=== PATIENT | male | born 1985 | race Two or more races ===

== ENCOUNTER 2022-10-18 12:39 | Emergency (ER) | payer OTHER ==
[~2022-10-18] VITALS: Ht 175.3 cm; Wt 114.1 kg
[2022-10-18] MEDS ORDERED: cloNIDine HCL 0.1 MG TAB PO ONE (13:00)
[2022-10-18] MEDS ORDERED: methylPREDNISolone SOD SUCC 125 MG/2 ML VL IM ONE (13:15)
[2022-10-18] MEDS ORDERED: cefTRIAXone SOD 1,000 MG VL IM ONE (13:15)
[2022-10-18] MEDS ORDERED: ACETAMINOPHEN 500 MG TAB PO ONE (13:15)
[2022-10-18] MEDS ORDERED: IBUPROFEN 800 MG TAB PO ONE (14:15)
[2022-10-18 14:48] VITALS: BP 138/77
[2022-10-18] MEDS ORDERED: IBUP800T27 PO (14:48)
[2022-10-18] MEDS ORDERED: AZIT500T66 PO (14:48)
[2022-10-18] MEDS ORDERED: LIDO2SOL23 MT (14:48)
== END 2022-10-18 14:53 | disposition home or self-care (01) ==
LOC: ER 12:39
DX: J03.90 Acute tonsillitis, unspecified (principal); I16.0 Hypertensive urgency; I10 Essential (primary) hypertension
CPT/HCPCS: 87070; 87880; 96372; 99284; J0696; J2930

== ENCOUNTER 2023-04-14 19:36 | Emergency (ER) | payer OTHER ==
[~2023-04-14] VITALS: Ht 175.3 cm; Wt 109.0 kg
[~2023-04-14 19:36] MED LIST: AZIT500T66 PO; IBUP-1456 PO; LIDO2SOL26 MT
[2023-04-14] MEDS ORDERED: HYDROcodone-ACET 5/325MG TAB PO ONE (20:30)
[2023-04-14 20:45] VITALS: BP 175/86; PULSE 106; RESP 20; TEMP 97.3; O2SAT 98
[2023-04-14] MEDS ORDERED: ACE3T PO (21:23)
[2023-04-14] MEDS ORDERED: KETOROLAC TROMETH 60MG/2ML VIAL IM ONE (21:45)
== END 2023-04-14 21:48 | disposition home or self-care (01) ==
LOC: ER 19:36
DX: S93.692A Other sprain of left foot, initial encounter (principal); I10 Essential (primary) hypertension; Z79.1 Long term (current) use of non-steroidal anti-inflammatories (NSAID); Z79.899 Other long term (current) drug therapy; X58.XXXA Exposure to other specified factors, initial encounter; Y93.02 Activity, running; Y92.89 Other specified places as the place of occurrence of the external cause; Y99.8 Other external cause status
CPT/HCPCS: 73630; 96372; 99283; J1885

== ENCOUNTER 2024-03-26 20:39 | Emergency (ER) | payer OTHER, MEDICAID ==
[~2024-03-26] VITALS: Ht 175.3 cm; Wt 105.0 kg
[~2024-03-26 20:39] MED LIST changes: +ACE3T PO
[2024-03-26 22:46] VITALS: BP 152/86; PULSE 93; RESP 20; TEMP 98; O2SAT 96
[2024-03-26] MEDS: HYDROcodone-ACET 10/325MG TAB PO ONE (22:58)
[2024-03-26] MEDS: KETOROLAC TROMETH 60MG/2ML VIAL IM ONE (22:59)
[2024-03-26] MEDS ORDERED: ACET-1304 PO (23:54)
[2024-03-26] MEDS ORDERED: IBUP-1455 PO (23:54)
[2024-03-26] MEDS ORDERED: METH-1181 PO (23:54)
== END 2024-03-27 00:09 | disposition home or self-care (01) ==
LOC: ER 20:39
DX: S29.011A Strain of muscle and tendon of front wall of thorax, initial encounter (principal); S46.812A Strain of other muscles, fascia and tendons at shoulder and upper arm level, left arm, initial encounter; I10 Essential (primary) hypertension; Z79.899 Other long term (current) drug therapy; X58.XXXA Exposure to other specified factors, initial encounter; Y93.89 Activity, other specified; Y92.89 Other specified places as the place of occurrence of the external cause; Y99.8 Other external cause status
CPT/HCPCS: 29105; 71045; 73030; 73060; 96372; 99284; J1885

== ENCOUNTER 2024-06-29 10:13 | Emergency (ER) | payer OTHER, MEDICAID ==
[~2024-06-29] VITALS: Ht 170.2 cm; Wt 105.0 kg
[~2024-06-29 10:13] MED LIST changes: +ACET-1304 PO; +IBUP-1455 PO; +METH-1181 PO
--- NOTE | 2024-06-29 10:33 | ED.PDOC ---
GI ASSESSMENT HPI Comments Vitals T: 99.4F RR: 20 HR: 116 BP: 129/102 R arm O2: 96% on RA PMHx: HTN PSHx: L ankle surgery, L hand surgery, R elbow surgery Social hx: denies tobacco use, denies ETOH use, denies drug use Meds: denies Allergies: NKDA HPI: Poor Historian. 39-year-old male presents to emergency department with his for evaluation of epigastric and bilateral upper quadrant pain that is constant with the associated nausea and vomiting and diarrhea nonbilious nonbloody. Patient onset of symptoms was at 3:00 a.m. in the morning prior to arrival. Patient denies any sick contacts. He did have someEl Joshua Stacy last night for dinner. No alleviating or precipitating factors. REVIEW OF SYSTEMS: CONSTITUTIONAL: Denies acute: fever, diaphoresis, chills, HEAD: Denies acute: headache, photophobia Eyes: Denies acute: Double vision, vision loss, eye pain, eye discharge. EARS: Denies acute: tinnitus, hearing loss, ear discharge, ear pain, THROAT: Denies acute: sore throat, swelling, difficulty swallowing , pain with swallowing, change in voice. NECK: Denies acute: neck pain, neck swelling, stiff neck. HEART: Denies acute : chest pain, palpitations, LUNGS: Denies acute: SOB, wheezing, cough, hemoptysis ABDOMEN: Denies acute: melena , hematemesis, hematochezia SKIN: Denies acute: rash, redness, lesions, itchiness. EXTREMITIES: Denies acute: calf pain, numbness, tingling, weakness, denies pain in extremity. Denies acute: Low back pain. Neuro: Denies acute: focal neurological deficit, motor or sensory focal neurological deficit, tremors, seizure like activity, confusion, dizziness, change in mental status, loss of bowel or bladder function, cauda equina like symptoms. : Denies acute: dysuria, hematuria, flank pain, increase in urinary frequency. PSYCH: Denies acute: hallucination, suicidal ideation, homicidal ideation. PHYSICAL EXAM: General: Moderate acute distress, awake and alert. Head: normocephalic, atraumatic. Neck: supple, trachea is midline, no swelling. Throat: Normal phonation. Eyes:, no erythema, no purulent discharge, no proptosis, no icterus. Heart: regular tachycardic, no significant murmur appreciated. Lungs: no apparent respiratory distress, Able to speak in full sentences. No wheezing, no rhonchi, no crackles. No stridors Clear to auscultation bilaterally. Abdomen: Epigastric and upper quadrant tender to palpation, non distended, soft, no guarding, no rebound, + bowel sounds. Neuro: Awake, Alert, oriented to name, self, situation, follows commands GCS=15. Speech is normal. Skin: no petechia, no purpura, no cyanosis, non-pale, not jaundice. Lower extremities: --no - Pitting edema no deformity, no focal swelling, no calf TTP. Makes eye contact. moves all four extremities. Face: no apparent facial droop. Ambulating in the ED independently. Chief Complaint: Abdominal Pain Time Seen by MD: 10:39 Primary Care Provider: NONE Reviewed Notes: Medications, Allergies Allergies: Coded Allergies: NO KNOWN ALLERGIES (Unverified , 10/18/22) Home Meds Active Scripts Methocarbamol (Methocarbamol) 500 Mg Tab, 1000 MG PO Q8HP PRN, #30 TAB P.r.n. muscle pain/spasm Prov:ÁLVARO HAYNES MD 03/26/24 Ibuprofen Micronized (Ibuprofen) 800 Mg Tab, 800 MG PO Q6HP PRN, #30 TAB Prov:ÁLVARO HAYNES MD 03/26/24 Acetaminophen (Tylenol Extra Strength) 500 Mg Tab, 1000 MG PO Q6HP PRN, #30 TAB Prov:ÁLVARO HAYNES MD 03/26/24 Acetaminophen W/ Codeine (Tylenol W/Cod #3) 1 Tab Tb, 1 TAB PO QIDP, #10 TAB 0 Refills Prov:ADAN TOLEDO 04/14/23 Lidocaine HCl (Mouth-Throat) (Lidocaine HCl Viscous) 2 % Charo, 10 ML MT TID, #120 ML Prov:ALEC AGEE 10/18/22 Ibuprofen (Ibuprofen) 800 Mg Tab, 1 TAB PO QID, #30 TAB Prov:ALEC AGEE 10/18/22 Azithromycin (Azithromycin) 500 Mg Tab, 1 TAB PO DAILY, #5 TAB Prov:ALEC AGEE 10/18/22 Information Source: Patient Mode of Arrival: Ambulatory Brought in by: self Past Medical History PAST MEDICAL HISTORY: HTN Surgical History: Denies all surgeries Family History Family History: Reviewed,noncontributory to illness Social History Smoker: Non-Smoker Alcohol: Denies ETOH Use Drugs: Denies Drug Use Lives In: Home Was a procedure done? Was a procedure done?: No GI differential Dx Differential Diagnosis: Other (DDX include but not limited to diverticulitis, colitis, gastroenteritis, acute abdomen, SBO, enteritis, constipation, volvulus, appendicitis, Gallbladder disease, choledocolithiasis, ascending cholangitis, pancreatitis, intraAbdominal mass/neoplasm, hepatitis, UTI, pylonephritis, kidney stone, aneurysm, dissection, Inflammatory bowel disease, gastroparesis, ischemic bowel.) X-Ray, Labs, Meds, VS Vital Signs Date Time Temp Pulse Resp B/P (MAP) Pulse Ox O2 Delivery O2 Flow Rate FiO2 06/29/24 17:22 99.5 116 20 134/79 (97) 93 99.5 06/29/24 12:48 115 27 154/85 (108) 94 06/29/24 11:30 145/80 06/29/24 11:02 98.1 117 19 160/97 (118) 100 98.1 06/29/24 10:55 117 19 100 Room Air* 0 21 06/29/24 10:20 99.4 116 20 129/102 (111) 96 Lab Test 06/29/24 16:30 06/29/24 13:25 06/29/24 10:40 06/29/24 10:23 Range/Units White Blood Count 6.1 # 8.4 4.4-10.8 10^3/uL Red Blood Count 6.37 H 6.99 H 4.5-5.90 10^6/uL Hemoglobin 16.1 18.0 H 13.5-17.5 g/dL Hematocrit 49.3 53.9 H 41.0-53.0 % Mean Corpuscular Volume 77.5 L 77.1 L 80.0-100.0 fL Mean Corpuscular Hemoglobin 25.3 L 25.8 L 28.0-32.0 pg Mean Corpuscular Hemoglobin Concent 32.7 33.4 32.0-36.0 g/dL Red Cell Distribution Width 18.1 H 19.2 H 11.8-14.3 % Platelet Count 191 214 140-450 10^3/uL Mean Platelet Volume 8.8 9.4 6.9-10.8 fL Neutrophils (%) (Auto) 90.3 H 37.0-80.0 % Lymphocytes (%) (Auto) 4.7 L 10.0-50.0 % Monocytes (%) (Auto) 4.4 0.0-12.0 % Eosinophils (%) (Auto) 0.4 0.0-7.0 % Basophils (%) (Auto) 0.2 0.0-2.0 % Neutrophils # (Auto) 5.5 1.6-8.6 10 ^3/uL Lymphocytes # (Auto) 0.3 L 0.4-5.4 10 ^3/uL Monocytes # (Auto) 0.3 0-1.3 10 ^3/uL Eosinophils # (Auto) 0 0-0.8 10 ^3/uL Basophils # (Auto) 0 0-0.2 10 ^3/uL Nucleated Red Blood Cells 0.1 % Sodium Level 138 135 L 136-145 mmol/L Potassium Level 4.3 5.3 H 3.5-5.1 mmol/L Chloride Level 107 103 98-107 mmol/L Carbon Dioxide Level 24 24 20-31 mmol/L Anion Gap 7 8 5-15 Blood Urea Nitrogen 14 19 9-23 mg/dL Creatinine 1.16 1.38 H 0.700-1.30 mg/dL Glomerular Filtration Rate Calc 83 68 >90 mL/min BUN/Creatinine Ratio 12.1 13.8 10.0-20.0 Serum Glucose 237 H 294 H 74-106 mg/dL Calcium Level 8.4 L 9.9 8.7-10.4 mg/dL Total Bilirubin 1.2 H 1.4 H 0.2-1.0 mg/dL Aspartate Amino Transferase (AST) 39 44 H 13-40 U/L Alanine Aminotransferase (ALT) 60 H 81 H 7-40 U/L Alkaline Phosphatase 57 66 46-116 U/L Total Protein 6.7 7.5 5.7-8.2 g/dL Albumin 4.2 4.8 3.2-4.8 g/dL Lipase 45 88 H 12-53 U/L Lactic Acid Level 1.7 2.1 H 0.4-2.0 mmol/L Differential Total Cells Counted 100.0 100 Neutrophils % (Manual) 91 H 37.0-80.0 Band Neutrophils % (Manual) 0 Lymphocytes % (Manual) 3 L 10.0-50.0 Monocytes % (Manual) 6 0-12 Eosinophils % (Manual) 0 0-7 Basophils % (Manual) 0 0.0-2.0 Metamyelocytes % (manual) 0 Myelocytes % (Manual) 0 Promyelocytes % (Manual) 0 Blast Cells % (Manual) 0 Reactive Lymphocytes 0 Platelet Estimate Adequate Magnesium Level 1.9 1.6-2.6 mg/dL Troponin I High Sensitivity 19 </=54 ng/L Urine Color Light-yellow Yellow Urine Clarity Clear Clear Urine pH 5.5 5.0-9.0 Urine Specific [place] 1.022 1.001-1.035 Urine Protein Trace H Negative Urine Ketones Trace Negative Urine Blood Negative Negative /uL Urine Nitrite Negative Negative Urine Bilirubin Negative Negative Urine Urobilinogen Normal Negative mg/dL Urine Leukocyte Esterase Negative Negative /uL Urine RBC None seen 0 - 3 /hpf Urine WBC 1 0 - 3 /hpf Urine Squamous Epithelial Cells Few <5 /hpf Urine Bacteria None seen None Seen /hpf Urine Mucus Few None Seen Urine Glucose 4+ H Normal mg/dL Urine Opiates Screen Neg NEGATIVE Urine Fentanyl Screen Pos NEGATIVE Urine Barbiturates Screen Neg NEGATIVE Urine Phencyclidine Screen Neg NEGATIVE Urine Amphetamines Screen Neg NEGATIVE Urine Benzodiazepines Screen Neg NEGATIVE Urine Cocaine Screen Neg NEGATIVE Urine Cannabinoids Screen Neg NEGATIVE Current Medications Medications (Trade) Dose Ordered Sig/Les Route Start Time Stop Time Status Last Admin Sodium Chloride 1,000 ml @ 1,000 mls/hr Q1H ONCE IV 06/29/24 10:45 06/29/24 11:44 DC 06/29/24 11:08 Ondansetron HCl (Zofran) 8 mg ONCE ONCE IV 06/29/24 10:45 06/29/24 10:46 DC 06/29/24 11:19 Fentanyl Citrate 100 mcg ONCE ONCE IM 06/29/24 11:00 06/29/24 11:02 DC 06/29/24 11:30 Metoclopramide HCl (Reglan Injection) 5 mg ONCE ONCE IV 06/29/24 14:00 06/29/24 14:08 DC 06/29/24 14:30 Sodium Chloride 1,000 ml @ 1,000 mls/hr Q1H ONCE IV 06/29/24 14:00 06/29/24 14:59 DC 06/29/24 14:12 [place] [address] Ph: [phone] DIAGNOSTIC IMAGING Diagnostic Imaging Report : [id number] Signed PATIENT: JACOB ORELLANA ACCT: [id number] UNIT: [id number] : 1985 LOC: ER ROOM / BED: / AGE / SEX: 39 / M ADM STATUS: REG ER SERVICE 1030 ORDERING PHYSICIAN: KRISTINA LOU DO PROCEDURE(s): ABPL - CT AB PEL WO CON-NO ORAL OR IV REASON: ABD PAIN N/V ORDER NUMBER(s): [id number], ACCESSION NUMBER(s): [id number] CT ABDOMEN AND PELVIS WITHOUT CONTRAST CLINICAL HISTORY: ABD PAIN N/V TECHNIQUE: Multiple contiguous axial images of the abdomen and pelvis without intravenous contrast. The images were reformatted degenerate coronal and sagittal reconstructions. All CT scans at this medical facility are performed using dose modulation techniques as appropriate to a performed exam including the following:Automated exposure control was utilized; adjustment of the MA and/or KV according to patient size; and use of iterative reconstruction technique. Radiation Dose Information: CT Dose: CTDI volume is 22.6 mGy. Dose-length product is 1323.32 mGy*cm Comparison: CT CHST AB PEL WO CON-NO IV/ORAL on DOS: 08/17/23 FINDINGS: Evaluation of the abdomen and pelvis is limited without intravenous contrast. There is a 3 mm calculus in the lower pole of the left kidney and a 2 mm calculus in the lower pole of the right kidney. There is no hydronephrosis. There is no evidence of a ureteral calculus or hydroureter. The liver, gallbladder, pancreas, adrenal glands, and spleen appear within normal limits. There is no gross evidence of abdominal lymphadenopathy. There is no free fluid or free air. The stomach grossly appears unremarkable. The small and large bowel loops demonstrate normal caliber. The abdominal aorta and IVC appear within normal limits. The bladder appears unremarkable for the degree of distention. Pelvic organ appears within normal limits. There is no gross evidence of a pelvic mass. There is no free fluid collection. Lung bases are clear. There is no acute osseous abnormality. IMPRESSION: 1. Small nonobstructive calculi in the lower pole of the right and left kidney measuring up to 3 mm. HS:Y ATED BY: RISHI THAYER MD DICTATED DATE/TIME: 06/29/24 1110 SIGNED BY: RISHI THAYER MD SIGNED DATE/TIME: 06/29/24 1110 CC: Time of 1ST Reevaluation: 16:22 Reevaluation 1ST: Improved Patient Education/Counseling: Diagnosis, Treatment Family Education/Counseling: Diagnosis, Treatment Comments Patient presented with the above HPI.---abdominal pain--workup was initiated. patient was found with the above mentioned diagnosis. Patient was given: Fluids, fentanyl, Zofran, Reglan Patient ED course and VS have been stabilized. Patient has been reassessed in the ED and remained in a stable condition. Pertinent incidental findings were discussed with the patient and/or family. Patient/family voices understanding and is agreeable with plan. Patient has been observed in the ED adequate length of time to insure improvement/stability. patient was discharged home in a stable condition All the reports of any imaging studies that were ordered by myself were reviewed by myself. Departure 1 Departure Time of Disposition: 16:22 Impression: Primary Impression: Abdominal pain Additional Impressions: Nausea and vomiting Hyperglycemia Disposition: 01 HOME / SELF CARE / HOMELESS Condition: Stable Additional Instructions: Additional discharge instructions: You MUST follow-up with your primary care/family doctor in 1 to 2 days. If you are unable to see your primary care/family doctor, please return to our emergency room for re-assessment and re-evaluation in 1 to 2 days. Return to the emergency room here in our facility or to the nearest ER [facility] if your symptoms change or worsen. CONSULTATIONS: you MUST Follow-up for consultation as soon as possible with: [facility] gastro[facility] in 1-2 days. Please call for appointment You MUST call the consultants office yourself to make an appointment. You may need to arrange that through your insurance and/or your primary/family doctor. If you are unable to see the financial consultant in 1 to 2 days, you must return to our emergency room (or any other ER of your choice) for re-assessment and re- evaluation. Adequate fluid hydration. Avoid fatty greasy spicy food. Avoid caffeinated products. Avoid NSAIDs. Below is a copy of your radiological report for follow up: [place] [address] Ph: [phone] DIAGNOSTIC IMAGING Diagnostic Imaging Report : [id number] Signed PATIENT: JACOB ORELLANA ACCT: [id number] UNIT: [id number] : 1985 LOC: ER ROOM / BED: / AGE / SEX: 39 / M ADM STATUS: REG ER SERVICE 1030 ORDERING PHYSICIAN: KRISTINA LOU DO PROCEDURE(s): ABPL - CT AB PEL WO CON-NO ORAL OR IV REASON: ABD PAIN N/V ORDER NUMBER(s): [id number], ACCESSION NUMBER(s): [id number] CT ABDOMEN AND PELVIS WITHOUT CONTRAST CLINICAL HISTORY: ABD PAIN N/V TECHNIQUE: Multiple contiguous axial images of the abdomen and pelvis without intravenous contrast. The images were reformatted degenerate coronal and sagittal reconstructions. All CT scans at this medical facility are performed using dose modulation techniques as appropriate to a performed exam including the following:Automated exposure control was utilized; adjustment of the MA and/or KV according to patient size; and use of iterative reconstruction technique. Radiation Dose Information: CT Dose: CTDI volume is 22.6 mGy. Dose-length product is 1323.32 mGy*cm Comparison: CT CHST AB PEL WO CON-NO IV/ORAL on DOS: 08/17/23 FINDINGS: Evaluation of the abdomen and pelvis is limited without intravenous contrast. There is a 3 mm calculus in the lower pole of the left kidney and a 2 mm calculus in the lower pole of the right kidney. There is no hydronephrosis. There is no evidence of a ureteral calculus or hydroureter. The liver, gallbladder, pancreas, adrenal glands, and spleen appear within normal limits. There is no gross evidence of abdominal lymphadenopathy. There is no free fluid or free air. The stomach grossly appears unremarkable. The small and large bowel loops demonstrate normal caliber. The abdominal aorta and IVC appear within normal limits. The bladder appears unremarkable for the degree of distention. Pelvic organ appe ars within normal limits. There is no gross evidence of a pelvic mass. There is no free fluid collection. Lung bases are clear. There is no acute osseous abnormality. IMPRESSION: 1. Small nonobstructive calculi in the lower pole of the right and left kidney measuring up to 3 mm. HS:Y ATED BY: RISHI THAYER MD DICTATED DATE/TIME: 06/29/24 1110 SIGNED BY: RISHI THAYER MD SIGNED DATE/TIME: 06/29/24 1110 CC: Discharged With: Self, Spouse Critical Care Note Critical Care Time?: No I personally scribed for KRISTINA LOU DO ([facility] on 06/29/24 at 10:33. Electronically submitted by Ximena Barraza (DESTINEE). I personally scribed for KRISTINA LOU DO ([email or web address]) on 06/29/24 at 10:39. Electronically submitted by Ximena Barraza (DESTINEE). I personally scribed for KRISTINA LOU DO ([email or web address]) on 06/29/24 at 13:13. Electronically submitted by Ximena Barraza (DESTINEE). KRISTINA LOU DO Jun 29, 2024 10:33
[2024-06-29] MEDS ORDERED: fentaNYL CITRATE 100 MCG/2 ML VL IV ONE (10:45)
[2024-06-29 10:55] VITALS: PULSE 117; RESP 19; O2SAT 100
[2024-06-29] MEDS: SODIUM CHLORIDE 0.9% 1,000 ML IV ONE ×2 (11:08→14:12)
--- NOTE | 2024-06-29 11:11 | DVH ---
CT ABDOMEN AND PELVIS WITHOUT CONTRAST CLINICAL HISTORY: ABD PAIN N/V TECHNIQUE: Multiple contiguous axial images of the abdomen and pelvis without intravenous contrast. The images were reformatted degenerate coronal and sagittal reconstructions. All CT scans at this medical facility are performed using dose modulation techniques as appropriate t o a performed exam including the following:Automated exposure control was utilized; adjustment of the MA and/or KV according to patient size; and use of iterative reconstruction technique. Radiation Dose Information: CT Dose: CTDI volume is 22.6 mGy. Dose-length product is 1323.32 mGy*cm Comparison: CT CHST AB PEL WO CON-NO IV/ORAL on DOS: 08/17/23 FINDINGS: Evaluation of the abdomen and pelvis is limited without intravenous contrast. There is a 3 mm calculus in the lower pole of the left kidney and a 2 mm calculus in the lower pole o f the right kidney. There is no hydronephrosis. There is no evidence of a ureteral calculus or hydrou reter. The liver, gallbladder, pancreas, adrenal glands, and spleen appear within normal limits. There is no gross evidence of abdominal lymphadenopathy. There is no free fluid or free air. The stomach grossly appears unremarkable. The small and large bowel loops demonstrate normal caliber . The abdominal aorta and IVC appear within normal limits. The bladder appears unremarkable for the degree of distention. Pelvic organ appears within normal jackson its. There is no gross evidence of a pelvic mass. There is no free fluid collection. Lung bases are clear. There is no acute osseous abnormality. IMPRESSION: 1. Small nonobstructive calculi in the lower pole of the right and left kidney measuring up to 3 mm. HS:Y
[2024-06-29] MEDS: ONDANSETRON HCL 4 MG/2 ML VIAL IV ONE (11:19)
[2024-06-29] MEDS: fentaNYL CITRATE 100 MCG/2 ML VL IM ONE (11:30)
[2024-06-29 11:39] LABS: Alanine Aminotransferase 81 U/L (7-40); Alkaline Phosphatase 66 U/L (46-116); Anion Gap 8 (5-15); BUN/Creatinine Ratio 13.8 (10.0-20.0); Blood Urea Nitrogen 19 mg/dL (9-23); Calcium 9.9 mg/dL (8.7-10.4); Carbon Dioxide 24 mmol/L (20-31); Chloride 103 mmol/L (98-107); Glucose 294 mg/dL (74-106); Magnesium 1.9 mg/dL (1.6-2.6); Potassium 5.3 mmol/L (3.5-5.1); Sodium 135 mmol/L (136-145)
[2024-06-29 11:40] LABS: Albumin 4.8 g/dL (3.2-4.8); Aspartate Aminotransferase 44 U/L (13-40); Bilirubin, Total 1.4 mg/dL (0.2-1.0); Lactic Acid w/Reflex 2.1 mmol/L (0.4-2.0)
[2024-06-29 11:41] LABS: Total Protein 7.5 g/dL (5.7-8.2)
[2024-06-29 12:02] LABS: Hematocrit 53.9 % (41.0-53.0); Mean Corpuscular Hemoglobin 25.8 pg (28.0-32.0); Mean Corpuscular Hgb Conc. 33.4 g/dL (32.0-36.0); Mean Corpuscular Volume 77.1 fL (80.0-100.0); Platelet Count (auto) 214 10^3/uL (140-450); Red Blood Cells 6.99 10^6/uL (4.5-5.90); Red Cell Distribution Width 19.2 % (11.8-14.3); White Blood Cell 8.4 10^3/uL (4.4-10.8)
[2024-06-29 12:06] LABS: Band Neutrophils % (manual) 0; Basophils % (manual) 0 (0.0-2.0); Blast Cells 0; Eosinophils % (manual) 0 (0-7); Metamyelocytes % 0; Myelocytes % 0; Promyelocytes % 0; Reactive Lymphocytes 0
[2024-06-29 12:28] LABS: Lipase 88 U/L (12-53)
[2024-06-29 12:41] LABS: Lymphocytes % (manual) 3 (10.0-50.0); Monocytes % (manual) 6 (0-12)
[2024-06-29 12:42] LABS: Platelet Estimate Adequate
[2024-06-29] MEDS: METOCLOPRAMIDE HCL 5MG/ml INJ 2ml VIAL IV ONE (14:30)
[2024-06-29 15:59] LABS: Urine Bacteria None Seen /hpf (None Seen)
[2024-06-29 16:19] LABS: Urine Blood Negative /uL (Negative); Urine Clarity Clear (Clear); Urine Color Light-Yellow (Yellow); Urine Mucus FEW (None Seen); Urine Protein, UAD TRACE (Negative); Urine Specific Gravity 1.022 (1.001-1.035); Urine Urobilinogen Normal (Negative); Urine WBC 1 /hpf (0 - 3); Urine pH 5.5 (5.0-9.0)
[2024-06-29 16:21] LABS: Amphetamine Screen, Urine Neg (NEGATIVE); Barbiturate Scree,Urine Neg (NEGATIVE); Benzodiazephine Screen, Urine Neg (NEGATIVE); Cannabinoid Screen, Urine Neg (NEGATIVE); Cocaine Screen, Urine Neg (NEGATIVE); Opiate Scree,Urine Neg (NEGATIVE); Phencyclidine Screen, Urine Neg (NEGATIVE)
[2024-06-29 17:00] LABS: Basophils # (auto) 0 10 ^3/uL (0-0.2); Eosinophils # (auto) 0 10 ^3/uL (0-0.8); Eosinophils % (auto) 0.4 % (0.0-7.0); Hemoglobin 16.1 g/dL (13.5-17.5); Lymphocytes # (auto) 0.3 10 ^3/uL (0.4-5.4); Mean Corpuscular Hgb Conc. 32.7 g/dL (32.0-36.0); Mean Corpuscular Volume 77.5 fL (80.0-100.0); Monocytes # (auto) 0.3 10 ^3/uL (0-1.3)
[2024-06-29 17:02] LABS: Basophils % (auto) 0.2 % (0.0-2.0); Hematocrit 49.3 % (41.0-53.0); Lymphocytes % (auto) 4.7 % (10.0-50.0); Mean Corpuscular Hemoglobin 25.3 pg (28.0-32.0); Monocytes % (auto) 4.4 % (0.0-12.0); Neutrophils # (auto) 5.5 10 ^3/uL (1.6-8.6); Neutrophils % (auto) 90.3 % (37.0-80.0); Nucleated Red Blood Cells % 0.1 %; Platelet Count (auto) 191 10^3/uL (140-450); Red Blood Cells 6.37 10^6/uL (4.5-5.90); Red Cell Distribution Width 18.1 % (11.8-14.3); White Blood Cell 6.1 10^3/uL (4.4-10.8)
[2024-06-29 17:13] LABS: Alanine Aminotransferase 60 U/L (7-40); Albumin 4.2 g/dL (3.2-4.8); Alkaline Phosphatase 57 U/L (46-116); Anion Gap 7 (5-15); Aspartate Aminotransferase 39 U/L (13-40); BUN/Creatinine Ratio 12.1 (10.0-20.0); Bilirubin, Total 1.2 mg/dL (0.2-1.0); Blood Urea Nitrogen 14 mg/dL (9-23); Calcium 8.4 mg/dL (8.7-10.4); Carbon Dioxide 24 mmol/L (20-31); Chloride 107 mmol/L (98-107); Glucose 237 mg/dL (74-106); Lipase 45 U/L (12-53); Potassium 4.3 mmol/L (3.5-5.1); Sodium 138 mmol/L (136-145); Total Protein 6.7 g/dL (5.7-8.2)
[2024-06-29 17:22] VITALS: BP 134/79; PULSE 116; RESP 20; TEMP 99.5; O2SAT 93
== END 2024-06-29 18:01 | disposition home or self-care (01) ==
LOC: ER 10:13
DX: R10.13 Epigastric pain (principal); R11.2 Nausea with vomiting, unspecified; R73.9 Hyperglycemia, unspecified; I10 Essential (primary) hypertension; Z98.890 Other specified postprocedural states; Z79.899 Other long term (current) drug therapy
CPT/HCPCS: 36415; 74176; 80053; 80307; 81001; 83605; 83690; 83735; 84484; 85007; 85025; 85027; 96361; 96372; 96374; 96375; 99285; J2405; J2765; J3010; J7030